=== PATIENT | male | born 2000 | race Caucasian/White ===

== ENCOUNTER 2021-09-20 12:07 | Emergency (ER) | payer OTHER, BC ==
[2021-09-20 12:11] VITALS: BP 120/76; PULSE 130; RESP 18; TEMP 97.5
[2021-09-20] MEDS ORDERED: LIDOCAINE 1% INJ 10MG/ML (5 ML VIAL-PF) SQ ONE (12:30)
--- NOTE | 2021-09-20 12:34 | ED ---
Wound/Laceration HPI - General Chief Complaint: Wound/Laceration Stated Complaint: [facility] - Lt leg lac Time Seen by Provider: 09/20/21 12:13 Source: patient, family, RN notes reviewed Mode of arrival: ambulatory Limitations: no limitations - History of Present Illness Initial Comments: This is a 21-year-old male who presents to the emergency department for a laceration to the left ankle. 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 His tetanus status is up-to-date, states that he received one a couple of years ago. Denies any fevers, chills, sore throat, cough, dyspnea, chest pain, palpitations, abdominal pain, nausea, vomiting, diarrhea, back pain, or headaches. Extremity Location: Left: Ankle Place: work Patient Tetanus UTD: Yes Context: accidental Treatments Prior to Arrival: bandage - Related Data Home Medications Medication Instructions Recorded Confirmed No Known Home Medications 09/20/21 09/20/21 Allergies Allergy/AdvReac Type Severity Reaction Status Date / Time No Known Allergies Allergy Verified 09/20/21 13:18 Review of Systems ROS Statement: Those systems with pertinent positive or pertinent negative responses have been documented in the HPI. ROS Other: All systems not noted in ROS Statement are negative. Past Medical History Past Medical History: No Reported History History of Any Multi-Drug Resistant Organisms: None Reported Past Surgical History: No Surgical Hx Reported Past Psychological History: No Psychological Hx Reported Past Alcohol Use History: None Reported Past Drug Use History: None Reported General Exam Limitations: no limitations General appearance: alert, in no apparent distress Head exam: Present: atraumatic, normocephalic, normal inspection Respiratory exam: Present: normal lung sounds bilaterally. Absent: respiratory distress, wheezes, rales, rhonchi, stridor Cardiovascular Exam: Present: regular rate, normal rhythm, normal heart sounds. Absent: systolic murmur, diastolic murmur, rubs, gallop, clicks Neurological exam: Present: alert, oriented X3, CN II-XII intact Psychiatric exam: Present: normal affect, normal mood Skin exam: Present: other (2 cm vertical laceration to the lateral aspect of the left ankle. No visible subcutaneous tissue. Minor active bleeding.) Course Vital Signs 09/20/21 12:08 Temperature 97.5 F L Pulse Rate 130 H Respiratory 18 Rate Blood Pressure 120/76 O2 Sat by Pulse 96 Oximetry Medical Decision Making - Medical Decision Making This is a 21-year-old male presents emergency department for a laceration of the left ankle. This was repaired with 2 sutures. He is instructed to return in 7- 10 days for suture removal. His tetanus status is up-to-date. Signs and symptoms of infection reviewed, including fevers, erythema, drainage, increased pain, and swelling, which would necessitate the need to return to the emergency department. Return precautions reviewed in depth, the patient is instructed to return to the emergency department with any new, worsening, or concerning symptoms. Patient verbalized understanding. This case was discussed in detail with the attending ED physician. Presentation, findings, and treatment plan discussed in detail as well. Disposition Clinical Impression: Laceration Disposition: HOME SELF-CARE Instructions (If sedation given, give patient instructions): Care For Your Stitches (ED) Additional Instructions: Return to the emergency department with any new, worsening, or concerning symptoms and in 7-10 days for suture removal. Is patient prescribed a controlled substance at d/c from ED?: No Referrals: Xuan Medina MD [Primary Care Provider] - 1-2 days
== END 2021-09-20 13:45 | disposition home or self-care (01) ==
LOC: EC 12:07
DX: S91.012A Laceration without foreign body, left ankle, initial encounter (principal); W26.8XXA Contact with other sharp object(s), not elsewhere classified, initial encounter; Y99.0 Civilian activity done for income or pay
CPT/HCPCS: 99282; 12001; J2001

== ENCOUNTER 2022-11-27 08:22 | Emergency (ER) | payer BC, OTHER ==
[2022-11-27 08:36] VITALS: BP 126/84; PULSE 79; RESP 18; TEMP 98.2
[2022-11-27] MEDS ORDERED: LIDOCAINE 1% INJ 10MG/ML (20 ML MDV) SQ ONE (08:49)
--- NOTE | 2022-11-27 09:04 | XR ---
EXAMINATION TYPE: XR hand complete LT DATE OF EXAM: 11/27/2022 COMPARISON: NONE HISTORY: Laceration TECHNIQUE: Three views are submitted. FINDINGS: The osseous structures are intact. The joint spaces are preserved and there is no acute fracture or dislocation. IMPRESSION: 1. No definite acute fracture or dislocation if symptoms persist, follow-up study in 7 to 10 days wo uld be suggested
--- NOTE | 2022-11-27 10:00 | ED ---
General Adult HPI - General Chief complaint: Wound/Laceration Stated complaint: Left hand laceration Time Seen by Provider: 11/27/22 08:30 Source: patient Mode of arrival: ambulatory Limitations: no limitations - History of Present Illness Initial comments: 22-year-old male with no past medical history presents to the emergency department reporting left hand laceration. States that he was sitting on the corner of a coffee table when it broke. Piece of glass went into his left hand and cut his palm. Bleeding was controlled. He did not take any pain medications before coming into the emergency department. He is right-hand dominant. He does not take any blood thinners. No other alleviating, precipitating or modifying factors - Related Data Home Medications Medication Instructions Recorded Confirmed No Known Home Medications 09/20/21 09/20/21 Allergies Allergy/AdvReac Type Severity Reaction Status Date / Time No Known Allergies Allergy Verified 11/27/22 08:30 Review of Systems ROS Statement: Those systems with pertinent positive or pertinent negative responses have been documented in the HPI. ROS Other: All systems not noted in ROS Statement are negative. Past Medical History Past Medical History: No Reported History History of Any Multi-Drug Resistant Organisms: None Reported Past Surgical History: No Surgical Hx Reported Past Psychological History: No Psychological Hx Reported Smoking Status: Never smoker Past Alcohol Use History: None Reported Past Drug Use History: None Reported General Exam Limitations: no limitations General appearance: alert, in no apparent distress Head exam: Present: atraumatic, normocephalic, normal inspection Extremities exam: Present: other (Laceration left palm measuring 1.5 cm. no tendon involvement. 2+ radial and ulnar pulses) Course Vital Signs 11/27/22 08:28 Temperature 98.2 F Pulse Rate 79 Respiratory 18 Rate Blood Pressure 126/84 O2 Sat by Pulse 99 Oximetry Procedures - Laceration Laceration #1 Consent Obtained: verbal consent Indication: laceration Site: hand Size (cm): 2 Description: linear Depth: simple, single layer Anesthetic Used: lidocaine 1% Anesthesia Technique: local infiltration Amount (mls): 5 Pre-repair: wound explored, irrigated extensively, deep structures intact Type of Sutures: nylon Size of Sutures: 5-0 Number of Sutures: 3 Technique: simple, interrupted Patient Tolerated Procedure: well, no complications Medical Decision Making - Medical Decision Making Was pt. sent in by a medical professional or institution (Dr., PA, [facility], urgent care, hospital, or intermediate...) When possible be specific @ -No Did you speak to anyone other than the patient for history (EMS, parent, family, police, friend...)? What history was obtained from this source @ -No Did you review nursing and triage notes (agree or disagree)? Why? @ -I reviewed and agree with nursing and triage notes Were old charts reviewed (outside hosp., previous admission, EMS record, old EKG, old radiological studies, urgent care reports/EKG's, intermediate records)? Report findings @ -No old charts were reviewed Differential Diagnosis (chest pain, altered mental status, abdominal pain women, abdominal pain men, vaginal bleeding, weakness, fever, dyspnea, syncope, headache, dizziness, GI bleed, back pain, seizure, CVA, palpatations, mental health, musculoskeletal)? @ -Laceration, abrasion, tendon disruption, retained foreign body EKG interpreted by me (3pts min.). @ -Not done X-rays interpreted by me (1pt min.). @ -Yes and there are no retained foreign bodies CT interpreted by me (1pt min.). @ -None done U/S interpreted by me (1pt. min.). @ -None done What testing was considered but not performed or refused? (CT, X-rays, U/S, labs)? Why? @ -None What meds were considered but not given or refused? Why? @ -None Did you discuss the management of the patient with other professionals (professionals i.e. MARIO Muro, [facility], lab, RT, psych nurse, social security specialist, photonics technician, teacher, compliance officer, counter caser)? Give summary @ -No Was smoking cessation discussed for >3mins.? @ -No Was critical care preformed (if so, how long)? @ -No Were there social determinants of health that impacted care today? How? (Homelessness, low income, unemployed, alcoholism, drug addiction, transportation, low edu. Level, literacy, decrease access to med. care, fdc, rehab)? @ -No Was there de-escalation of care discussed even if they declined (Discuss DNR or withdrawal of care, Hospice)? DNR status @ -No What co-morbidities impacted this encounter? (DM, HTN, Smoking, COPD, CAD, Cancer, CVA, ARF, Chemo, Hep., AIDS, mental health diagnosis, sleep apnea, morbid obesity)? @ -None Was patient admitted / discharged? Hospital course, mention meds given and route, prescriptions, significant lab abnormalities, going to OR and other pertinent info. @ -On arrival patient was placed into room 32. Thorough history and physical exam was performed. I did cleanse the wound. It did require suture placement. I did send him for an x-ray to evaluate for any retained glass. X-rays negative. I did place 3 interrupted sutures in the patient's left hand. He did tolerate the procedure well. Patient will be discharged home at this time and is instructed to have his sutures removed in 7-10 days. Return to the emergency room for any new or worsening symptoms. Patient was agreeable to plan and discharged in stable condition Undiagnosed new problem with uncertain prognosis? @ -No Drug Therapy requiring intensive monitoring for toxicity (Heparin, Nitro, Insulin, Cardizem)? @ -No Were any procedures done? @ -No Diagnosis/symptom? @ -Acute left hand laceration Acute, or Chronic, or Acute on Chronic? @ -Acute Uncomplicated (without systemic symptoms) or Complicated (systemic symptoms)? @ -Uncomplicated Side effects of treatment? @ -No Exacerbation, Progression, or Severe Exacerbation? @ -No Poses a threat to life or bodily function? How? (Chest pain, [place], MA, pneumonia, PE, COPD, DKA, ARF, appy, cholecystitis, CVA, Diverticulitis, Homicidal, Suicidal, threat to staff... and all critical care pts) @ -No Disposition Clinical Impression: Laceration of left hand Disposition: HOME SELF-CARE Condition: Stable Instructions (If sedation given, give patient instructions): Care For Your Stitches (ED), Laceration (ED) Additional Instructions: Your are stitches must be removed in 7-10 days. Please follow-up with your primary care doctor or return to the emergency department. Place Bacitracin to the site twice a day. Keep covered when working with dirty materials. Do not soak. Return for any new or worsening symptoms Is patient prescribed a controlled substance at d/c from ED?: No Referrals: Xuan Medina MD [Primary Care Provider] - 1-2 days Time of Disposition: 10:00
== END 2022-11-27 10:29 | disposition home or self-care (01) ==
LOC: EC 08:22
DX: S61.412A Laceration without foreign body of left hand, initial encounter (principal); X50.1XXA Overexertion from prolonged static or awkward postures, initial encounter
CPT/HCPCS: 73130; 99283; 12001; J2001